=== PATIENT | male | born 1970 | race Hispanic/Latino ===

== ENCOUNTER 2023-12-22 10:12 | Emergency (ER) | payer BC | END 2023-12-22 10:48 | disposition home or self-care (01) | LOC: MADERS 10:12 | DX: S41.112D Laceration without foreign body of left upper arm, subsequent encounter (principal); I10 Essential (primary) hypertension; Z79.899 Other long term (current) drug therapy; W26.9XXD Contact with unspecified sharp object(s), subsequent encounter | CPT/HCPCS: 99282 ==